=== PATIENT | male | born 1980 | race Caucasian/White ===

== ENCOUNTER 2024-04-06 02:13 | Inpatient (IN) | payer OTHER ==
[~2024-04-06] VITALS: Ht 182.9 cm; Wt 109.1 kg
[2024-04-06] MEDS ORDERED: vancomycin/NS 1 GM ADD-VANTAGE 250 ML IV ONE (03:00)
[2024-04-06 03:27] LABS: BASOPHILS # (AUTO) 0.1 X10'3 (0-0.2); BASOPHILS % (AUTO) 0.6 % (0-1); EOSINOPHILS # (AUTO) 0.6 X10'3 (0-0.9); HEMATOCRIT 43.9 % (42.0-52.0); HEMOGLOBIN 14.8 g/dl (14.0-17.9); LYMPHOCYTES # (AUTO) 2.6 X10'3 (1.1-4.8); LYMPHOCYTES % (AUTO) 23.5 % (21-51); MEAN CORPUSCULAR HGB CONC 33.8 g/dL (33.0-36.5); MEAN CORPUSCULAR VOLUME 88.9 FL (78-98); MEAN PLATELET VOLUME 8.6 FL (7.4-10.4); MONOCYTES # (AUTO) 1.4 X10'3 (0-0.9); MONOCYTES % (AUTO) 12.7 % (2-12); NEUTROPHILS # (AUTO) 6.2 X10'3 (1.8-7.7); NEUTROPHILS % (AUTO) 57.2 % (42-75); PLATELET COUNT 308 X10'3 (140-440); RED BLOOD COUNT 4.94 X10'6 (4.70-6.10); RED CELL DISTRIBUTION WIDTH 13.6 % (11.5-14.5); WHITE BLOOD COUNT 10.8 X10'3 (4.5-11.0)
[2024-04-06 03:42] LABS: ALBUMIN 3.2 G/DL (3.4-5.0); ANION GAP 7 (8-16); BLOOD UREA NITROGEN 15 MG/DL (7-18); BUN/CREATININE RATIO 15.8 (10.0-20.0); C-REACTIVE PROTEIN 3.21 MG/DL (0.0-0.5); CALCIUM 8.7 MG/DL (8.5-10.1); CHLORIDE 103 MMOL/L (99-107); CREATININE 0.95 MG/DL (0.60-1.10); GLUCOSE 99 MG/DL (70-104); MAGNESIUM 2.1 MG/DL (1.5-2.4); POTASSIUM 3.9 MMOL/L (3.5-5.1); SODIUM 137 MMOL/L (135-145); TOTAL CARBON DIOXIDE 27.3 MMOL/L (24-32); eCRCL 111 ML/MIN; eGFR 87 ML/MIN
[2024-04-06] MEDS: piperacillin/tazo 3.375gm/50ml 50 ML IV ONE (04:10)
[2024-04-06] MEDS: normal saline 1000ml 1,000 ML IV SCH ×2 (04:10→06:04)
[2024-04-06] MEDS: vancomycin 1,750 MG in NS 350ml IV soln IV ONE (04:43)
[2024-04-06] MEDS ORDERED: NO HOME MEDS (05:12)
[2024-04-06] MEDS ORDERED: acetaminophen 325mg tablet PO PRN (05:50)
[2024-04-06] MEDS ORDERED: magnesium 4gm in 100ml NS 100 ML IV PRN (05:50)
[2024-04-06] MEDS ORDERED: magnesium 2GM in 50ml NS 50 ML IV PRN (05:50)
[2024-04-06] MEDS ORDERED: potassium Cl 20 mEq SR tablet PO PRN ×2 (05:50)
[2024-04-06] MEDS ORDERED: ondansetron/PF 4mg/2ml inj IV PRN (05:50)
[2024-04-06] MEDS ORDERED: potassium Cl 40MEQ/1/2NS 520ml 520 ML IV PRN (05:50)
[2024-04-06] MEDS ORDERED: magnesium Cl slow-release 64mg tablet PO PRN (05:50)
[2024-04-06] MEDS ORDERED: mag hydrox/Alum hydrox/simeth 30ml oral suspension PO PRN (05:50)
[2024-04-06] MEDS ORDERED: magnesium hydroxide 30ml (MOM) UD suspension PO PRN (05:50)
[2024-04-06] MEDS ORDERED: HYDROcodone/acetaminophen 5mg/325mg tablet PO PRN (06:00)
[2024-04-06] MEDS: nicotine 14mg patch - 24hr TD ONE (06:09)
[2024-04-06] MEDS: K and/or MAG REPLACEMENT MC SCH (08:00)
[2024-04-06] MEDS: docusate sod 100mg capsule PO SCH (08:00)
[2024-04-06] MEDS: vancomycin/NS 1 GM ADD-VANTAGE 250 ML IV SCH (13:17)
[2024-04-06 14:03] LABS: BILIRUBIN,URINE NEGATIVE (Neg); CLARITY,URINE CLEAR (Clear); COLOR,URINE YELLOW (Yellow); GLUCOSE, URINE NEGATIVE (Neg); KETONES,URINE NEGATIVE (Neg); LEUKOCYTE ESTERASE ,URINE NEGATIVE (Neg); NITRITES, URINE NEGATIVE (Neg); OCCULT BLOOD,URINE NEGATIVE (Neg); PROTEIN,URINE NEGATIVE (Neg)
[2024-04-06 14:16] LABS: UA COLLECTION TYPE NON-SPECIFIED
[2024-04-06 14:18] LABS: URINE AMPHETAMINE SCREEN POSITIVE (Neg); URINE BARBITUATE SCREEN NEGATIVE (Neg); URINE BENZODIAZEPINES SCREEN NEGATIVE (Neg); URINE CANNABINOID SCREEN NEGATIVE (Neg); URINE COCAINE SCREEN NEGATIVE (Neg); URINE METHADONE SCREEN NEGATIVE (Neg); URINE PHENCYCLIDINE SCREEN NEGATIVE (Neg)
[2024-04-06] MEDS ORDERED: piperacillin/tazo 3.375gm/50ml 50 ML IV SCH (16:00)
[2024-04-06 18:40] VITALS: BP 151/95; PULSE 85; RESP 20; TEMP 98.1; O2SAT 97
[2024-04-06 20:00] VITALS: RESP 18; O2SAT 96
[2024-04-06 21:10] VITALS: BP 110/60; PULSE 96; RESP 20; TEMP 98.2; O2SAT 96
[2024-04-06 22:00] VITALS: BP 146/94; PULSE 86; RESP 18; TEMP 98.1; O2SAT 97
[2024-04-07] MEDS: VANCOMYCIN LEVEL IV ONE (04:32)
[2024-04-07 06:12] LABS: BASOPHILS # (AUTO) 0.1 X10'3 (0-0.2); BASOPHILS % (AUTO) 0.6 % (0-1); EOSINOPHILS # (AUTO) 0.6 X10'3 (0-0.9); EOSINOPHILS % (AUTO) 6.1 % (0-6); HEMATOCRIT 45.1 % (42.0-52.0); LYMPHOCYTES # (AUTO) 2.4 X10'3 (1.1-4.8); MEAN CORPUSCULAR HEMOGLOBIN 29.6 PG (27.0-31.0); MEAN CORPUSCULAR HGB CONC 33.2 g/dL (33.0-36.5); MEAN PLATELET VOLUME 9.2 FL (7.4-10.4); MONOCYTES # (AUTO) 1.2 X10'3 (0-0.9); MONOCYTES % (AUTO) 11.1 % (2-12); NEUTROPHILS # (AUTO) 6.4 X10'3 (1.8-7.7); NEUTROPHILS % (AUTO) 60.2 % (42-75); PLATELET COUNT 331 X10'3 (140-440); RED BLOOD COUNT 5.07 X10'6 (4.70-6.10); RED CELL DISTRIBUTION WIDTH 13.4 % (11.5-14.5); WHITE BLOOD COUNT 10.7 X10'3 (4.5-11.0)
[2024-04-07 06:18] LABS: ANION GAP 5 (8-16); BLOOD UREA NITROGEN 12 MG/DL (7-18); BUN/CREATININE RATIO 15.2 (10.0-20.0); CALCIUM 8.4 MG/DL (8.5-10.1); CHLORIDE 102 MMOL/L (99-107); CREATININE 0.79 MG/DL (0.60-1.10); GLUCOSE 118 MG/DL (70-104); POTASSIUM 3.9 MMOL/L (3.5-5.1); SODIUM 136 MMOL/L (135-145); TOTAL CARBON DIOXIDE 29.4 MMOL/L (24-32); VANCOMYCIN,TROUGH 9.6 ug/mL (10.0-20.0); eCRCL 134 ML/MIN; eGFR > 90 ML/MIN
== END 2024-04-07 05:30 | disposition left against medical advice (07) | DRG 603 ==
LOC: ER 02:14 → ED HOLD 05:50 → EDBEDREQ 18:08 → SUR 3N 18:34
PROVIDERS: ADMIT Surgery Surgical Critical Care; ATTEND Internal Medicine
DX: L03.115 Cellulitis of right lower limb (principal); Z53.21 Procedure and treatment not carried out due to patient leaving prior to being seen by health care provider; F17.210 Nicotine dependence, cigarettes, uncomplicated; F19.10 Other psychoactive substance abuse, uncomplicated
CPT/HCPCS: 36415; 73630; 80048; 80202; 80305; 81003; 83605; 83735; 84132; 84145; 85025; 85651; 86140; 87040; 87081; 96365; 96367; 99285; G0378; J2543; J3370; J7030; J7040